=== PATIENT | male | born 1990 | race African-American/Black ===

== ENCOUNTER 2018-09-02 21:24 | Emergency (ER) | payer OTHER ==
[~2018-09-02] VITALS: Ht 172.7 cm; Wt 71.7 kg
[2018-09-02 21:27] VITALS: BP 129/84
[2018-09-02 22:03] LABS: ABSOLUTE BASOPHILS 0.1 thou/uL (0.0-0.2); ABSOLUTE EOSINOPHILS 0.2 thou/uL (0.0-0.7); ABSOLUTE LYMPHOCYTES 2.8 thou/uL (0.8-5.3); ABSOLUTE MONOCYTES 0.7 thou/uL (0.0-1.2); ABSOLUTE NEUTROPHILS 7.3 thou/uL (1.6-8.1); BASOPHILS 0.7 %; EOSINOPHILS 1.6 %; HEMATOCRIT 43.8 % (42.0-52.0); HEMOGLOBIN 15.2 gm/dL (14.0-18.0); LYMPHOCYTES 25.5 %; MCH 30.5 pg (26.0-34.0); MCHC 34.7 g/dL (28.0-37.0); MONOCYTES 6.7 %; MPV 7.5 fl. (7.2-11.1); NUCLEATED RBCS 0 /100WBC; PLATELET COUNT* 273 thou/uL (150-400); POLYS 65.5 %; RBC 4.98 mil/uL (4.50-6.00); RDW-CV 13.5 % (10.5-14.5); WBC 11.1 thou/uL (4.0-11.0)
[2018-09-02 22:09] LABS: ANION GAP 6 mmol/L (7-16); BUN 13 mg/dL (7-18); CALCIUM 8.5 mg/dL (8.5-10.1); CHLORIDE 100 mmol/L (98-107); CO2 31 mmol/L (21-32); CREATININE 1.2 mg/dL (0.6-1.3); GLUCOSE 89 mg/dL (70-99); POTASSIUM 3.4 mmol/L (3.5-5.1); SODIUM 137 mmol/L (136-145)
[2018-09-02 22:16] LABS: ALKALINE PHOSPHATASE 80 U/L (46-116); SGOT 24 U/L (15-37); SGPT 31 U/L (30-65); TOTAL BILIRUBIN 0.4 mg/dL (<0.1-1.0); TOTAL PROTEIN 7.3 g/dL (6.4-8.2); TROPONIN-I LEVEL <0.06 ng/mL (<0.06)
--- NOTE | 2018-09-03 11:19 | EKG ---
[place] [address] ELECTROCARDIOGRAM REPORT Name: DAVIS TALAVERA Room: [facility]#: [id number] Admission: 09/02/18 Attend Phys: Discharge: 09/02/18 Date of : [birth year] Report #: [id number] THIS REPORT FOR: //name// [facility] ED Test Date: 2018-09-02 Test Time: 21:51:38 Pat Name: DAVIS TALAVERA Department: Room: Gender: M Systems Coordinator: JOVANNI : 1990 Requested By: Della Hall Order Number: [id number] MD: Adam Anthony Measurements Intervals [place] Rate: 93 P: 77 [place]: 161 QRS: 74 QRSD: 88 T: 44 QT: 339 QTc: 422 Interpretive Statements Sinus rhythm Consider right atrial enlargement ST elev, probable normal early repol pattern No previous ECG available for comparison Electronically Signed On 09-03-2018 11:19:19 [employer] by Adam Anthony [email or web address] <ELECTRONICALLY SIGNED> By: Adam Anthony MD, [facility] 09/03/18 1119 [id number] 215 Adam Anthony MD, FACC /EPI
== END 2018-09-02 22:36 | disposition home or self-care (01) ==
LOC: M.ERS 21:24
PROVIDERS: Nurse Practitioner Family
DX: F41.0 Panic disorder [episodic paroxysmal anxiety] (principal); F17.210 Nicotine dependence, cigarettes, uncomplicated; Z88.6 Allergy status to analgesic agent; Z88.8 Allergy status to other drugs, medicaments and biological substances